=== PATIENT | female | born 1950 | race Caucasian/White ===

== ENCOUNTER 2017-07-12 08:11 | Day surgery (SDC) | payer OTHER ==
--- NOTE | 2017-07-12 08:11 | CP.SDSHP ---
Same Day Surgery H & P - History Proposed Procedure: EGD Pre-Op Diagnosis: Epigastric pain. heartburn - Previous Medical/Surgical History Cardiac: Hypertension (hyperlipidemia, gastritis, ) Endocrine/Metabolic: Diabetes - Physical Exam Mental Status: Alert & Oriented x3 Neuro: WNL Heart: WNL Lungs: WNL GI: WNL - Impression Impression: epigastric pain. heartburn Pt. Evaluated Today:Candidate for Anesthesia & Procedure: Yes - Date & Time Date: 07/12/17 Time: 08:11 Short Stay Discharge - Short Stay Discharge Admitting Diagnosis/Reason for Visit: HEARTBURN, EPIGASTRIC PAIN Disposition: HOME/ ROUTINE
[2017-07-12 08:29] VITALS: BMI 28.5
[2017-07-12] MEDS ORDERED: Lactated Ringer's 500 ML IV ONE (09:02)
[2017-07-12] MEDS ORDERED: Propofol 10 mg/ml Inj (20 ML) ONE (09:08)
[2017-07-12] MEDS ORDERED: Pantoprazole 40 mg EC Tab PO STA (09:12)
[2017-07-12 09:37] VITALS: TEMP 98.2
[2017-07-12 09:49] VITALS: O2SAT 100
[2017-07-12 09:57] VITALS: PULSE 83
[2017-07-12 10:07] VITALS: BP 130/71; RESP 18
== END 2017-07-12 10:10 | disposition home or self-care (01) ==
LOC: C.ENDO 08:11
PROVIDERS: ATTEND Internal Medicine Gastroenterology
DX: K21.0 Gastro-esophageal reflux disease with esophagitis (principal); E11.9 Type 2 diabetes mellitus without complications; I10 Essential (primary) hypertension; E78.5 Hyperlipidemia, unspecified; K29.70 Gastritis, unspecified, without bleeding
CPT/HCPCS: 43239; 43254; 82948; 88305; 88312; 88342; J2001; J2704; J7120